=== PATIENT | female | born 1975 | race Caucasian/White ===

== ENCOUNTER 2020-03-22 09:10 | Emergency (ER) | payer BC, SELFPAY ==
[2020-03-22] VITALS (7 sets, daily range): BP systolic 155–224; BP diastolic 97–119; PULSE 72–108; RESP 18–19; TEMP 36.8; O2SAT 96–100
--- NOTE | ~2020-03-22 | XR_ITS ---
EXAMINATION: XR chest 2V EXAM DATE: 03/22/2020 09:54 INDICATION: Acute onset midsternal chest pain. TECHNIQUE: Frontal and lateral projections of the chest obtained and reviewed. There is no prior rachel dy for comparison. FINDINGS: The lungs are clear. There are no pleural effusions. The cardiomediastinal silhouette is within normal limits. There is no pneumothorax suspected. The bones and soft tissues are unremarkab le. IMPRESSION: Normal chest x-ray exam. Reviewed, dictated and finalized at location B. IMPRESSION: Normal chest x-ray exam.
--- NOTE | 2020-03-22 09:19 | ECG_ITS ---
Measurements Intervals [place] Rate: 102 P: 28 HI: 191 QRS: 30 QRSD: 90 T: 44 QT: 352 QTc: 460 Interpretive Statements SINUS TACHYCARDIA INCOMPLETE RIGHT BUNDLE BRANCH BLOCK BASELINE ARTIFACT- III BORDERLINE ECG Electronically Signed On 03-22-2020 9:24:01 CDT by Kenn Charles D.O.
[2020-03-22 09:31] LABS: Basophils Percent Auto 0.5 % (0.2-1.2); Eosinophils Absolute Auto 0.2 K/mm3 (0-0.3); Eosinophils Percent Auto 2.3 % (0-4.4); Hematocrit 43.2 % (37.0-47.0); Hemoglobin 15.4 g/dL (12.0-15.0); Immature Granulocyte Absolute 0.02 K/mm3 (0.00-0.031); Immature Granulocyte Percent A 0.3 % (0-0.5); Lymphocytes Absolute Auto 2.03 K/mm3 (0.9-3.2); Lymphocytes Percent Auto 26.4 % (18.3-44.2); Mean Corpuscular HGB Conc 35.6 g/dl (32-36); Mean Corpuscular Hemoglobin 34.5 pg (26-34); Mean Corpuscular Volume 96.6 fl (80-100); Mean Platelet Volume 9.7 fl (7.4-10.4); Monocytes Absolute Auto 0.4 K/mm3 (0.1-0.6); Monocytes Percent Auto 4.8 % (2.6-8.5); Neutrophils Absolute Auto 5.1 K/mm3 (1.3-6.7); Neutrophils Percent Auto 65.7 % (45.5-73.1); Platelet Count Result 214 k/mm3 (150-375); Red Blood Count 4.47 M/mm3 (4.2-5.4); Red Cell Distribution Width 12.5 % (11.5-14.5); White Blood Count 7.7 K/mm3 (4.5-10.0)
[2020-03-22 09:40] LABS: Prothrombin Time 12.8 Seconds (11.1-14.7)
[2020-03-22 09:41] LABS: Partial Thromboplastin Time 26.4 SECONDS (22.3-36.8)
[2020-03-22] MEDS: ASPIRIN 81 MG CHEWABLE TABLET 324 MG PO (09:44)
[2020-03-22 09:46] LABS: Anion Gap 13 mmol/L (8-16); Blood Urea Nitrogen 10 mg/dL (7-17); Calcium 9.6 mg/dL (8.4-10.2); Carbon Dioxide 25 mmol/L (22-30); Chloride 102 mmol/L (98-107); Estimated CRCL calculation 66 ml/min; Estimated Glomerular Filt Rate > 60; Glucose 112 mg/dL (65-105); Potassium 3.2 mmol/L (3.4-5.0); Sodium 140 mmol/L (137-145)
[2020-03-22] MEDS: LABETALOL HCL INJ 100 MG/20 ML VIAL 20 MG IV PUSH (09:56)
[2020-03-22 09:58] LABS: Troponin I < 0.012 ng/mL (0.000-0.034)
--- NOTE | 2020-03-22 10:23 | ED.CHESTPAIN ---
HPI - Chest Pain General Chief Complaint: Chest Pain <Hilario Sanford PA-C - Last Filed: 03/22/20 13:11> Stated Complaint: CP <Hilario Sanford PA-C - Last Filed: 03/22/20 13:11> Time Seen by Provider: 03/22/20 09:29 <Hilario Sanford PA-C - Last Filed: 03/22/20 13:11> Source: patient <TRISTEN Mtz Last Filed: 03/22/20 13:11> Mode of arrival: ambulatory <TRISTEN Mtz Last Filed: 03/22/20 13:11> Limitations: no limitations <TRISTEN Mtz Last Filed: 03/22/20 13:11> History of Present Illness HPI narrative: Patient presents with chief complaint of intermittent sternal chest discomfort that presents approximately 3 times a week and last for approximately 20 to 30 minutes and has been doing so since the beginning of the year. Patient states that she saw her primary care in June and was supposed to have lab work done and monitor her blood pressures for initiation of blood pressure medication, but due to COVID the work-up was never completed and medications were never initiates. Patient states the discomfort feels as if she just needs to flush something down, but she does not feel as if there is anything in her chest to flush down any presents even when she has not recently eaten. Patient states that the pain goes away on its own within 20-30 minutes without taking any medications or doing anything else to alleviate it. She does not note the discomfort to correlate with eating drinking or activity. Is not accompanied by SOB or worsened with inspiration. Patient states that she noticed that her blood pressures has also been increasing and noted blood pressures in the 160-70s/110s the last 2-3 days so she came to the emergency department to be evaluated. Patient denies chest pain at this time, shortness of breath, nausea, vomiting, diarrhea. Patient reports patients headache was not sudden or maximal in onset. Patient reports she has been urinating appropriately and denies any other symptoms. Patient reports she is a smoker. Her PCP is Samantha Caraballo. <TRISTEN Mtz Last Filed: 03/22/20 13:11> Related Data Allergies/Adverse Reactions: Allergies Allergy/AdvReac Type Severity Reaction Status Date / Time No Known Allergies Allergy Unknown Verified 03/22/20 09:20 <Hilario Sanford PA-C - Last Filed: 03/22/20 13:11> Review of Systems Review of Systems: Narrative: CONSTITUTIONAL: Denies fever, chills, or sweats. EYES: Denies visual changes, redness, or discharge. ENT: Denies rhinorrhea, congestion, sore throat, or otalgia. CARDIOVASCULAR: Reports chest pain, Denies palpitations, or edema. RESPIRATORY: Denies cough or dyspnea. GASTROINTESTINAL: Denies abdominal pain, nausea, vomiting, or diarrhea. GENITOURINARY: Denies dysuria or hematuria. SKIN: Denies rash or itching. MUSCULOSKELETAL: Denies back pain, myalgia, or joint pain NEUROLOGIC: Reports mild headache, Denies numbness, dizziness, or weakness. PSYCHIATRIC: Denies anxiety or depression. <Hilario Sanford PA-C - Last Filed: 03/22/20 13:11> PMFSH Family History Family History: Family History (Updated 01/12/16 @ 23:19 by DOCTOR UNKNOWN) Mother Family history of chronic obstructive pulmonary disease Family history of diabetes mellitus in first degree relative Patient's mother is Father Family history of coronary artery disease Patient's father is Sibling Acute myocardial infarction Other Hypertension <Hilario Sanford PA-C - Last Filed: 03/22/20 13:11> Social History Social History: Social History Smoking status: Smoker, status unknown Second hand tobacco smoke exposure: No Alcohol intake: current <Hilario Sanford PA-C - Last Filed: 03/22/20 13:11> Exam Narrative: Exam Narrative: GENERAL: Well-appearing, well-nourished. HEAD: Normocephalic, atraumatic. EYES: PERRLA and EOMI. ENT: Nares clear, no rhinorrhea or epistax
[2020-03-22 11:06] LABS: Add Urine Microscopic? YES; Appearance Urine Clear (Clear); Bacteria Urine Trace /hpf; Bilirubin Urine Negative (Negative); Blood Urine 2+ (Negative); Color Urine Yellow (Yellow); Glucose Urine UA Negative (Negative); Ketones Urine Negative (Negative); Leukocyte Esterase Ur Negative LEU/UL (Negative); Mucus Urine Few /lpf; Nitrate Urine Negative (Negative); Protein Urine 1+ mg/dL (Negative); RBC Urine 21-50 /hpf (0-2); Specific Grav Ur 1.024 (1.001-1.035); Squamous Epithelial Cell Urine Moderate /hpf (Few); Transitional Epi Cells Urine Rare /hpf (None Seen); Urobilinogen Urine Negative mg/dL (<2.0); WBC Urine 0-3 /hpf
[2020-03-22 12:55] LABS: Troponin I < 0.012 ng/mL (0.000-0.034)
== END 2020-03-22 13:50 | disposition home or self-care (01) ==
PROVIDERS: Physician Assistant; Emergency Provider General Practice; PCP Family Medicine
DX: R07.9 Chest pain, unspecified (principal); I10 Essential (primary) hypertension
CPT/HCPCS: 36415; 71046; 80048; 81001; 84484; 85025; 85610; 85730; 93005; 96374; 99284; A9270

== ENCOUNTER → 2020-03-28 09:12 | Outpatient (CLI) | payer BC, SELFPAY ==
--- NOTE | ~2020-03-28 | XR_ITS ---
EXAMINATION: XR foot RT min 3V DATE: 03/28/2020 09:23 INDICATION: Right foot pain. TECHNIQUE: 4 views of right foot were obtained. COMPARISON: None. FINDINGS: There is moderate hallux valgus. No fracture. There is mild osteoarthritis of first metatar sophalangeal joint and talonavicular joint. There is an enthesophyte at posterior aspect of calcaneal tuberosity. IMPRESSION: 1. Moderate hallux valgus. 2. Mild polyarticular osteoarthritis. Reviewed, dictated and finalized at location A.
== END ==
PROVIDERS: PCP Family Medicine; Visit Provider Family Medicine
DX: M79.671 Pain in right foot (principal); I10 Essential (primary) hypertension; M20.11 Hallux valgus (acquired), right foot; M19.071 Primary osteoarthritis, right ankle and foot
CPT/HCPCS: 73630

== ENCOUNTER 2022-07-29 10:35 | Emergency (ER) | payer BC, SELFPAY ==
[2022-07-29] VITALS (16 sets, daily range): BP systolic 154–171; BP diastolic 90–99; PULSE 88–112; RESP 11–18; TEMP 36.5; O2SAT 90–100
--- NOTE | ~2022-07-29 | XR_ITS ---
EXAMINATION: XR chest 2V DATE: 07/29/2022 11:21 INDICATION: Shortness of breath. Dizziness. Chest pain. TECHNIQUE: Frontal and lateral views of the chest were obtained. COMPARISON: Chest 2 views 03/22/2020 FINDINGS: A calcified right lung nodule is consistent with old granulomatous disease. No pleural effu isaiah or pneumothorax. The heart size is normal. IMPRESSION: 1. No acute cardiopulmonary disease. Reviewed, dictated and finalized at location A. 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
--- NOTE | 2022-07-29 10:41 | ECG_ITS ---
Measurements Intervals [place] Rate: 99 P: 42 SD: 159 QRS: 40 QRSD: 93 T: 50 QT: 337 QTc: 434 Interpretive Statements SINUS RHYTHM WITHIN NORMAL LIMITS COMPARED TO ECG 03/22/2020 09:20:54 HEART RATE IS REDUCED NO OTHER SIGNIFICANT CHANGE Electronically Signed On 07-29-2022 12:15:42 EFFICIENCY EXPERT by Kenny Whitt M.D.
[2022-07-29 10:53] LABS: Basophils Absolute Auto 0.1 K/mm3 (0.0-0.1); Basophils Percent Auto 0.6 % (0.2-1.2); Eosinophils Absolute Auto 0.2 K/mm3 (0-0.3); Eosinophils Percent Auto 1.8 % (0-4.4); Hematocrit 41.2 % (37.0-47.0); Hemoglobin 14.7 g/dL (12.0-15.0); Immature Granulocyte Absolute 0.03 K/mm3 (0.00-0.031); Immature Granulocyte Percent A 0.4 % (0-0.5); Lymphocytes Absolute Auto 2.04 K/mm3 (0.9-3.2); Lymphocytes Percent Auto 24.8 % (18.3-44.2); Mean Corpuscular HGB Conc 35.7 g/dl (32-36); Mean Corpuscular Hemoglobin 33.9 pg (26-34); Mean Corpuscular Volume 95.2 fl (80-100); Mean Platelet Volume 9.7 fl (7.4-10.4); Monocytes Absolute Auto 0.4 K/mm3 (0.1-0.6); Monocytes Percent Auto 5.1 % (2.6-8.5); Neutrophils Absolute Auto 5.5 K/mm3 (1.3-6.7); Neutrophils Percent Auto 67.3 % (45.5-73.1); Platelet Count Result 263 k/mm3 (150-375); Red Blood Count 4.33 M/mm3 (4.2-5.4); Red Cell Distribution Width 12.2 % (11.5-14.5); White Blood Count 8.2 K/mm3 (4.5-10.0)
[2022-07-29 11:02] LABS: Alanine Aminotransferase 19 U/L (6-35); Albumin Level 4.6 g/dL (3.5-5.1); Alkaline Phosphatase 59 U/L (38-126); Anion Gap 12 mmol/L (8-16); Aspartate Amino Transferase 24 U/L (14-36); Bilirubin,Total 0.5 mg/dL (0.2-1.3); Blood Urea Nitrogen 11 mg/dL (7-17); Calcium 9.3 mg/dL (8.4-10.2); Carbon Dioxide 23 mmol/L (22-30); Chloride 102 mmol/L (98-107); Estimated CRCL calculation 59 ml/min; Estimated Glomerular Filt Rate > 60; Glucose 119 mg/dL (65-110); Potassium 3.1 mmol/L (3.4-5.0); Sodium 137 mmol/L (137-145)
--- NOTE | 2022-07-29 11:29 | ED.SOB ---
HPI - SOB/Dyspnea General Chief Complaint: Shortness of Breath/Dyspnea Stated Complaint: sob Time Seen by Provider: 07/29/22 11:20 History of Present Illness HPI Narrative: Patient is a 46-year-old female with a history of tobacco use here for evaluation of shortness of breath. 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 She states that she took her blood pressure at that time and noticed it was slightly elevated at 140 systolic. She states after she took her blood pressure she became more short of breath, felt the blood rosas from her head, and thought that she looked pale in the mirror. She called her friend who took her to the police station, who called an ambulance and brought her here. Patient states that she has improved since then, still slightly lightheaded but no longer short of breath. No chest pain, fevers or chills, cough, congestion, leg swelling or pain. Related Data Allergies Allergy/AdvReac Type Severity Reaction Status Date / Time No Known Allergies Allergy Unknown Verified 04/12/20 08:41 Review of Systems Review of Systems: Gen.: Reports lightheadedness. Denies fevers or chills Eyes: Denies eye pain or visual change ENT: Denies congestion Respiratory: Reports shortness of breath CV: Denies chest pain or palpitations GI: Reports abdominal pain nausea, emesis or diarrhea denies burning, urgency, frequency or hematuria Musculoskeletal: Denies back pain or muscle pain Neuro: Denies numbness, tingling, weakness or focal weakness Skin: Denies rash 10 point review of systems negative, other than as per history of present illness, past medical history and other positives and review of systems [facility] Past Medical History Medical History Essential hypertension Family History Family History Mother Family history of chronic obstructive pulmonary disease Family history of diabetes mellitus in first degree relative Patient's mother is Father Family history of coronary artery disease Patient's father is Sibling Acute myocardial infarction Other Hypertension Social History Social History Smoking status: Never smoker Second hand tobacco smoke exposure: No Alcohol intake: current Exam Narrative: APPEARANCE: Well appearing, no pain in distress, well-nourished. Head: Normocephalic and atraumatic. EYES: PERRLA/EOMI, conjunctivae clear NOSE: No nasal drainage EARS: External ear normal in appearance THROAT: Oropharynx is clear. Mucous membranes are moist. NECK: Supple. No adenopathy, no masses. RESPIRATORY: Airway patent, respirations nonlabored. Clear to auscultation bilaterally, no rales, rhonchi, wheezing. CARDIOVASCULAR: Regular rate and rhythm without murmurs, rubs, or gallops. ABDOMINAL: Normoactive bowel sounds. Soft, nontender, nondistended. No rebound tenderness or guarding. MUSCULOSKELETAL: Extremities are warm and well-perfused. Moves all extremities well. No edema. NEURO: Normal speech. No focal neurologic deficits. SKIN: Skin is warm and dry. No rashes. PSYCHIATRIC: Normal affect/mood.. Course Vital Signs Vital signs: Vital Signs Temperature 97.7 F 07/29/22 10:34 Pulse Rate 103 H 07/29/22 10:34 Respiratory Rate 13 07/29/22 10:34 Blood Pressure 158/97 H 07/29/22 10:34 Pulse Oximetry 100 07/29/22 10:34 Oxygen Delivery Room Air 07/29/22 10:34 Temperature 97.7 F 07/29/22 10:34 Pulse Rate 102 H 07/29/22 13:31 Respiratory Rate 17 07/29/22 13:31 Blood Pressure 168/90 H 07/29/22 13:30 Pulse Oximetry 96 07/29/22 13:31 Oxygen Delivery Room Air 07/29/22 10:34 MDM - SOB/Dyspnea MDM Narrative Medical decision making narrative: 4
[2022-07-29 13:27] LABS: D Dimer 0.36 ug/mL (<0.48)
== END 2022-07-29 14:30 | disposition home or self-care (01) ==
PROVIDERS: Emergency Medicine; Emergency Provider Physician Assistant; PCP Nurse Practitioner Family
DX: F41.9 Anxiety disorder, unspecified (principal); I10 Essential (primary) hypertension
CPT/HCPCS: 36415; 71046; 80053; 85025; 85380; 93005; 99284

== ENCOUNTER → 2023-04-09 14:58 | Outpatient (CLI) | payer BC, SELFPAY ==
--- NOTE | ~2023-04-09 | MM_ITS ---
EXAMINATION: MM screening tom BI w alfredo HISTORY: Screening mammogram TECHNIQUE: Craniocaudal and mediolateral oblique 3-D tomosynthesis images were obtained and synthetic 2-D images were generated. CAD analysis was submitted and interpreted. COMPARISON: No prior mammogram is available for comparison at this institution. BREAST PARENCHYMAL COMPOSITION: The breasts are heterogeneously dense, which may obscure small masses . FINDINGS: There is no evidence of suspicious mass, calcification, or architectural distortion to sugg est malignancy in either breast. There has been no suspicious interval change. IMPRESSION: 1. No mammographic evidence of malignancy. 2. Recommend routine screening mammography in one year. BI-RADS Category 1: Negative Reviewed, dictated and finalized at location A.
== END ==
PROVIDERS: PCP Nurse Practitioner Family; Visit Provider Nurse Practitioner Family
DX: Z12.31 Encounter for screening mammogram for malignant neoplasm of breast (principal)
CPT/HCPCS: 77063; 77067

== ENCOUNTER 2024-07-06 12:25 | Outpatient (CLI) | payer BC, SELFPAY ==
--- NOTE | ~2024-07-06 | MM_ITS ---
EXAMINATION: MM screening tom BI w alfredo HISTORY: Screening TECHNIQUE: Craniocaudal and mediolateral oblique 3-D tomosynthesis images were obtained and synthetic 2-D images were generated. CAD analysis was submitted and interpreted. COMPARISON: 04/09/2023 BREAST PARENCHYMAL COMPOSITION: Dense: The breasts are heterogeneously dense, which may obscure small masses. FINDINGS: There is no evidence of suspicious mass, calcification, or architectural distortion to sugg est malignancy in either breast. There has been no suspicious interval change. IMPRESSION: 1. No mammographic evidence of malignancy. 2. Recommend routine screening mammography in one year. BI-RADS Category 1: Negative Reviewed, dictated and finalized at location A. 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
== END 2024-07-06 12:26 | disposition home or self-care (01) ==
LOC: MICIMG 12:26
PROVIDERS: PCP Internal Medicine; Visit Provider Obstetrics & Gynecology
DX: Z12.31 Encounter for screening mammogram for malignant neoplasm of breast (principal)
CPT/HCPCS: 77063; 77067

== ENCOUNTER 2025-02-03 13:45 | Outpatient (CLI) | payer OTHER, SELFPAY ==
--- NOTE | ~2025-02-03 | DEXA_ITS ---
Bone Density Report Name: TALA LOVE Age: 49 Sex: Female Ethnicity: White Date of : 1975 Indication: postmenopausal; screening for osteoporosis; inflammatory bowel disease; hysterectomy; Referring Provider: LUCIOMAYRA Study: Bone densitometry was performed. Exam Date: February 03, 2025 Accession number: [id number] Bone Density: Region BMD T-score Z-score Classification AP Spine(L1-L4) 0.997 -0.5 0.3 Normal Femoral Neck (Left) 0.689 -1.4 -0.7 Osteopenia Total Hip (Left) 0.775 -1.4 -0.9 Osteopenia Femoral Neck (Right) 0.662 -1.7 -0.9 Osteopenia Total Hip (Right) 0.784 -1.3 -0.8 Osteopenia Total Hip Mean 0.780 -1.4 -0.9 Osteopenia World Health Organization criteria for BMD impression classify patients as: Normal (T-score at or above -1.0), Osteopenia (T-score between -1.0 and -2.5), or Osteoporosis (T-score at or below -2.5). 10-year Fracture Risk(1): Major Osteoporotic Fracture 4.7% Hip Fracture 0.5% Reported Risk Factors: [place] (), Neck BMD=0.662, BMI=22.9 (1) FRAX(R) Version 3.08. Fracture probability calculated for an untreated patient. Fracture probability may be lower if the patient has received treatment. Clinical Information Provided by Patient: Has used the following medications: Vitamin D Has the following medical conditions: Inflammatory bowel diseases, Hysterectomy Patient maximum height was 61.5 Menopause Age: 39 No regular weight bearing exercise Does not regularly consume dairy products Drinks caffeinated beverages Onset of menses at age 13 Number of children 1 Missed period for more than 6 months in a row Impression: The patient has low bone mass, based on the Right Femoral Neck T-score. The patient has an estimated ten-year risk of hip fracture of 0.5% and an estimated ten-year risk of major fracture of 4.7%, based on the WHO FRAX algorithm. Discussion: BONE DENSITY IS LOW AT ONE OR MORE SKELETAL SITES. This patient's lowest T-score is low at one or more skeletal sites. It meets the World Health Organization's (WHO) criteria for ?low bone mass? (T-score between -1.0 and -2.5). The patient's 10-year risk of fracture as calculated by FRAX is less than the threshold where pharmacological therapy is recommended by the National Osteoporosis Foundation (NOF). However, all treatment decisions require clinical judgment and consideration of individual patient factors, including patient preferences, comorbidities, previous drug use, risk factors not captured in the FRAX model (e.g., frailty, falls, vitamin D deficiency, increased bone turnover, interval significant decline in bone density) and possible under or overestimation of fracture risk by FRAX. The patient should follow a healthful lifestyle (good nutrition with adequate calcium and vitamin D, and appropriate weight-bearing exercise). Follow-Up: Consider repeating this study in 2 to 3 years to reassess this patient's status, or sooner if there is some new clinical indication. Reported by: ASHLEY on 02/03/2025 2:26:00 PM. Reviewed, dictated and finalized at location A.
--- OUTSIDE RECORDS SUMMARY | 2025-02-03 14:01 | XMS_ITS | Clinical Summary ---
Author Organization [facility] [address] [place] [address] Care Team Providers Care Assignment Editor Name Role Phone Eligio Arboleda MD Primary Care Provide r Allergies No known active allergies Medications lisinopriL (PRINIVIL,ZESTRIL) 20 mg tablet Take 20 mg by mouth daily 05/28/20 22 Active fenofibrate nanocrystallized (TRICOR) 145 mg tablet Take 145 mg by mouth daily 06/14/20 22 Active ergocalciferol (VITAMIN D) 50,000 unit capsule Take 50,000 Units by mouth 06/14/20 22 Active escitalopram (LEXAPRO) 5 mg tablet Take 1 tablet (5 mg total) by mouth daily 07/30/19 23 Active benzonatate (TESSALON) 200 mg capsuleIndications:A cute cough Take 1 capsule (200 mg total) by mouth 3 (three) times a day as needed for cough 30 capsule 07/02/19 25 Active Additional Information Patient not taking.Reported on 01/08/2025 clotrimazole 1 % creamIndications:Glen h and nonspecific skin eruption Apply topically 2 (two) times a day 30 g 01/09/20 25 Active Active Problems Problem Noted Date Diagnosed Date Chest pain 07/05/2022 Hypertension 07/05/2022 Hyperlipidemia 07/05/2022 Tobacco dependence 07/05/2022 Encounters Date Type Department Care Team Description 01/08/2025 11:15 AM CDT Office Visit [facility] at [address] [address] Verenice De Los Santos NP Rash and nonspecific skin eruption (Primary Dx) from Last 3 Months Surgical History Surgery Date Site/Laterality Comments HYSTERECTOMY Medical History Medical History Date Comments Hypertension Hyperlipidemia Family History Medical History Relation Name Comments Hypertension Brother Sleep apnea Brother Heart failure Father COPD Mother Heart disease Mother Relation Name Status Comments Brother Alive Father Mother Sister Alive Social History Tobacco Use Types Packs/Day Years Used Date Smoking Tobacco: Some Days Cigarettes 0.1 30 Passive Smoke Exposure: Past Smokeless Tobacco: Never Tobacco Cessation:Ready to Q uit: Not Asked; Counseling Given: Not Answered AUDIT-C Answer Date Recorded Q1: How often do you have a drink containing alc ohol? 2-3 times a week 07/05/2022 Q2: How many drinks containi ng alcohol do you have on a typical day when you are drinking? 3 or 4 07/05/2022 Q3: How often do you have si x or more drinks on one occasion? Never 07/05/2022 Comments Unknown Sex and Gender Information Value Date Recorded Sex Assigned at Not on file Legal Sex Female 9:11 AM DOCTOR PODIATRIC MEDICINE Gender Identity Not on file Sexual Orientation Not on file Obstetrics History Last Filed Vital Signs Vital Sign Reading Time Taken Comments Blood Pressure 122/85 01/08/2025 11:09 AM CDT Pulse 76 01/08/2025 11:09 AM CDT Temperature 36.7 C (98.1 F) 01/08/2025 11:09 AM CDT Respiratory Rate 20 01/08/2025 11:09 AM CDT Oxygen Saturation 97% 01/08/2025 11:09 AM CDT Inhaled Oxygen Concentration - - Weight 55.3 kg (122 lb) 01/08/2025 11:09 AM CDT Height 154.9 cm (5' 1) 08/16/2022 7:59 AM DOCTOR PODIATRIC MEDICINE Body Mass Index 23.05 08/16/2022 7:59 AM DOCTOR PODIATRIC MEDICINE Plan of Treatment Health Maintenance Due Date Last Done Comments Breast Cancer Screening-Mammogram 1974 Colon Cancer Screening-Colonoscopy 1974 Depression Screening 1974 Hepatitis C Screening 1974 Hepatitis B Screening 1992 Regular Well Visit/Exam 18-64 1992 Pneumococcal vaccine <65 (1 of 2 - PCV) 1993 Covid-19 Vaccine (2023-2 5 season) 2024 11/22/2020, 11/01/2020 Zoster Vaccine (1 of 2) 2024 Influenza Vaccine (#1) 2025 2, 03/21/2021, 03/21/2020, Additional history exists DTaP/Tdap/Td Vaccine (2 - Td or Tdap) 10/05/2033 10/06/2023 Insurance [employer] Care Teams Assignment Editor Relationship Specialty Start Date End Date Eligio Arboleda MD [address] [place] [address] PCP - General Internal Medicine 07/02/24
--- OUTSIDE RECORDS SUMMARY | 2025-02-03 14:01 | XMS_ITS | Clinical Summary ---
Author Organization [facility] Address [address] [place] [address] Care Team Providers Care Salvage Inspector Name Role Phone Samantha Caraballo MD Primary Care Provider [phone] Source Comments [facility],non-[facility] Affiliates and Associated Physician Practices is amultiple site organization consisting of ambulatory clinics and hospital sitesin [place], [place], [place] and [place]. This disclosure is being madepursuant to the Care Everywhere program and may not contain all information available regarding this patient. Last updated 18.[facility] [employer] Allergies No known active allergies Medications * Be aware that medications may not be up to date on this document. Alwaysverify current medications with the patient. No known medications Social History Tobacco Use Types Packs/Day Years Used Date Smoking Tobacco: Every Day Smokeless Tobacco: Never Comments No Sex and Gender Information Value Date Recorded Sex Assigned at Not on file Legal Sex Female 3:48 PM CDT Gender Identity Not on file Sexual Orientation Not on file Last Filed Vital Signs Vital Sign Reading Time Taken Comments Blood Pressure 130/78 03/28/2017 3:23 PM CDT Pulse 92 03/28/2017 3:23 PM CDT Temperature 36.8 C (98.2 F) 03/28/2017 3:23 PM CDT Respiratory Rate 16 03/28/2017 3:23 PM CDT Oxygen Saturation 99% 03/28/2017 3:23 PM CDT Inhaled Oxygen Concentration - - Weight 63.5 kg (140 lb) 03/28/2017 3:23 PM CDT Height 154.9 cm (5' 1) 03/28/2017 3:23 PM CDT Body Mass Index 26.45 03/28/2017 3:23 PM CDT Plan of Treatment Health Maintenance Due Date Last Done Comments COLOGUARD (AGES 45-75) - COL ON CA SCREENING 1974 COLON MONITORING 1974 COLONOSCOPY - COLON CA SCREENING 1974 CT COLONOGRAPHY - COLON CA SCREENING 1974 Colorectal Cancer Screening 1974 FIT - COLON CA SCREENING 1974 FLEX SIG - COLON CA SCREENING 1974 LIPID TESTING 1974 MAMMOGRAM 1974 HIV SCREENING 1989 HEPATITIS C SCREENING 09/12/1992 DTAP/TDAP/TD VACCINES (1 - Tdap) 1993 HEPATITIS B VACCINE (1 of 3 - 19+ 3-dose series) 1993 SCREENING FOR DIABETES 03/28/2017 COVID-19 VACCINE (1 - 2023-2 5 season) 2024 DEPRESSION SCREENING 06/16/2024 PNEUMOCOCCAL VACCINE 50+ (1 of 1 - PCV) 2024 ZOSTER VACCINE (1 of 2) 2024 INFLUENZA VACCINE (#1) 2025 HIB VACCINE Aged Out No longer eligi ble based on patient's age to complete this topic HPV VACCINE Aged Out No longer eligi ble based on patient's age to complete this topic MENINGOCOCCAL (Group B) VACC INE SHARED DECISION-MAKING Aged Out No longer eligibl e based on patient's age to complete this topic MENINGOCOCCAL GROUPS A/C/Y/W VACCINE Aged Out No longer eligible b ased on patient's age to complete this topic Insurance JESUS[employer] Care Teams Salvage Inspector Relationship Specialty Start Date End Date Samantha Caraballo MD [address] [place] [address] PCP - General Family Medicine 10/04/16
--- OUTSIDE RECORDS SUMMARY | 2025-02-03 14:01 | XMS_ITS | Clinical Summary ---
Author Organization [facility] Address [address] [place] [id number] Care Team Providers Care Pecan Grower Name Role Phone Unavailable Primary Care Provider Unavailabl e Social History Tobacco Use Types Packs/Day Years Used Date Smoking Tobacco: Never Assessed Comments Unknown Sex and Gender Information Value Date Recorded Sex Assigned at Not on file Legal Sex Female 7:27 PM CDT Gender Identity Not on file Sexual Orientation Not on file Plan of Treatment Health Maintenance Due Date Last Done Comments Cervical Cancer Screening Pa p Smear (Age 30 to 64) Every 3 Years 1974 Colorectal Cancer Screening Colonoscopy (10 Years) 1974 Annual Physical 1977 Hepatitis C 1992 DTaP, Tdap and Td Vaccines ( 1 - Tdap) 1993 Hepatitis B Vaccines (1 of 3 - 19+ 3-dose series) 1993 Cervical Cancer Screening Pa p with HPV Testing (Age 30 to 64) Every 5 Years 2004 Cervical Cancer Screening with HPV 2004 Mammogram Screening 2014 COVID-19 Vaccine (2023-2 5 season) 2024 Pneumococcal Vaccine: 50+ Ye ars (1 of 1 - PCV) 2024 Zoster Vaccines (1 of 2) 2024 Meningococcal B Vaccine Aged Out No l onger eligible based on patient's age to complete this topic Meningococcal Vaccine Aged Out No tristan jordi eligible based on patient's age to complete this topic RSV Immunizations Under 20 Months Aged Out No longer eligible based on patient's age to complete this topic
== END 2025-02-03 13:46 | disposition home or self-care (01) ==
LOC: ANHFOHIMG 13:50
PROVIDERS: PCP Internal Medicine; Visit Provider Internal Medicine
DX: Z13.820 Encounter for screening for osteoporosis (principal); M85.852 Other specified disorders of bone density and structure, left thigh; M85.851 Other specified disorders of bone density and structure, right thigh
CPT/HCPCS: 77080